=== PATIENT | female | born 1970 | race Caucasian/White ===

== ENCOUNTER 2016-12-17 10:55 | Day surgery (SDC) | payer BC, OTHER ==
[~2016-12-17 10:55] MED LIST: Lactated Ringers 1,000 ML IV SCH; Sodium Chloride 0.9% 10 ML Syringe FLUSH PRN; Sodium Chloride 0.9% 2.5 ML Syringe FLUSH PRN
[2016-12-17] MEDS ORDERED: Propofol 200 MG/20 ML SDV ONE (11:37)
[2016-12-17] MEDS ORDERED: Lidocaine 2% 5 ML SDV ONE (11:37)
[2016-12-17] MEDS ORDERED: fentaNYL 100 MCG/2 ML SDV ONE (11:38)
[2016-12-17] MEDS ORDERED: Midazolam 1 MG/ML 2 ML SDV ONE ×2 (11:38→12:14)
--- NOTE | 2016-12-17 11:42 | PCM.PREANE ---
Preanesthetic Assessment - Anesthesia/Transfusion/Family Hx Anesthesia History: Prior Anesthesia Without Reaction Family History of Anesthesia Reaction: No Transfusion History: No Prior Transfusion(s) Intubation History: Unknown - Review of Systems General: No Symptoms Pulmonary: No Symptoms Cardiovascular: No Symptoms Gastrointestinal: Abdominal pain, Difficulty swallowing Neurological: No Symptoms Other: Reports: None - Physical Assessment O2 Sat by Pulse Oximetry: 98 Respiratory Rate: 16 Vital Signs: Last Vital Signs Temp 36.7 C 12/17/16 11:32 Pulse 70 12/17/16 11:32 Resp 16 12/17/16 11:32 BP 149/76 H 12/17/16 11:32 Pulse Ox 98 12/17/16 11:32 Height: 1.63 m Weight: 67.585 kg ASA Class: 2 Mental Status: Alert & Oriented x3 Airway Class: Mallampati = 2 Dentition: Reports: Normal Dentition Thyro-Mental Finger Breadths: 3 Mouth Opening Finger Breadths: 2 ROM/Head Extension: Full Lungs: Clear to auscultation, Normal respiratory effort Cardiovascular: Regular Rate, Regular Rhythm - Lab Values: Laboratory Last Values Urine HCG, Qual NEGATIVE (NEGATIVE) 12/17/16 10:58 - Allergies Allergies/Adverse Reactions: Allergies Allergy/AdvReac Type Severity Reaction Status Date / Time morphine Allergy Hives Verified 12/16/16 11:20 - Blood Blood Available: No - Anesthesia Plan Pre-Op Medication Ordered: None - Acknowledgements Anesthesia Type Planned: MAC Pt an Appropriate Candidate for the Planned Anesthesia: Yes Alternatives and Risks of Anesthesia Discussed w Pt/Guardian: Yes Pt/Guardian Understands and Agrees with Anesthesia Plan: Yes PreAnesthesia Questionnaire HEENT History: Reports: Glaucoma Other HEENT History: wears glasses Cardiovascular History: Reports: High cholesterol, Hypertension Respiratory History: Reports: None Gastrointestinal History: Reports: Pancreatitis (h/o pancreatitis 8 years ago treated with ERCP and stent placement), Other (see below) (epigastric pain and disphagia) Genitourinary History: Reports: None MANAGING ATTORNEY History: Reports: None Musculoskeletal History: Reports: None Neurological History: Reports: Other (see below) Other Neuro History: hx of motion sickness Psychiatric History: Reports: Anxiety, Depression Endocrine/Metabolic History: Reports: Other (see below) Other Endocrine/Metabolic History: hypoglycemia Hematologic History: Reports: None Immunologic History: Reports: None Oncologic (Cancer) History: Reports: None Dermatologic History: Reports: None - Past Surgical History Head Surgeries/Procedures: Reports: None HEENT Surgical History: Reports: None Cardiovascular Surgical History: Reports: None Respiratory Surgical History: Reports: None GI Surgical History: Reports: Appendectomy, Cholecystectomy, Colonoscopy (x2), EGD (x2), ERCP Female Surgical History: Reports: Hysterectomy Endocrine Surgical History: Reports: None Neurological Surgical History: Reports: None Musculoskeletal Surgical History: Reports: None Oncologic Surgical History: Reports: None Dermatological Surgical History: Reports: None - SUBSTANCE USE Smoking Status *Q: Never Smoker Recreational Drug Use History: No - HOME MEDS Home Medications: Home Meds Eszopiclone [Lunesta] 3 mg PO BEDTIME PRN 12/16/16 [History] Lisinopril 20 mg PO DAILY 12/16/16 [History] Montelukast Sodium [Singulair] 10 mg PO DAILY 12/16/16 [History] Spironolactone [Aldactone] 25 mg PO DAILY 12/16/16 [History] Venlafaxine [Effexor] 75 mg PO DAILY 12/16/16 [History] atorvaSTATin [Lipitor] 10 mg PO BEDTIME 12/16/16 [History] - CURRENT (IN HOUSE) MEDS Current Meds: Current Medications Lactated Ringer's (Ringers, Lactated) 1,000 mls @ 125 mls/hr IV ASDIRECTED [facility] Last Admin: 12/17/16 11:34 Dose: 125 mls/hr Sodium Chloride (Saline Flush) 10 ml FLUSH ASDIRECTED PRN PRN Reason: Keep Vein Open Sodium Chloride (Saline Flush) 2.5 ml FLUSH ASDIRECTED PRN PRN Reason: Keep Vein Open
--- NOTE | 2016-12-17 12:46 | PCM.OPNOTE ---
- General Post-Op/Procedure Note Date of Surgery/Procedure: 12/17/16 Operative Procedure(s): EGD with biopsy Findings: Hyperplastic polyps in gastric body otherwise normal Pre Op Diagnosis: dysphagia Post-Op Diagnosis: gastric polyps Anesthesia Technique: MAC Primary Surgeon: Brooke Neely Condition: Good
[2016-12-17] MEDS ORDERED: Ondansetron 4 MG/2 ML SDV IVPUSH ONE (12:50)
[2016-12-17] MEDS ORDERED: Ondansetron 4 MG Tab.DIS PO PRN (12:51)
[2016-12-17] MEDS ORDERED: Ondansetron 4 MG/2 ML SDV ONE (12:54)
--- NOTE | 2016-12-17 12:54 | PCM.POSTAN ---
POST ANESTHESIA ASSESSMENT - MENTAL STATUS Mental Status: alert, oriented - RESPIRATORY Respiratory Status: respiratory rate WNL, airway patent, O2 saturation stable - CARDIOVASCULAR CV Status: pulse rate WNL, blood pressure stable - GASTROINTESTINAL GI Status: no symptoms - POST OP HYDRATION Hydration Status: adequate & stable - OBSERVATIONS Free Text/Narrative:: no anesthesia problems
[2016-12-17] MEDS ORDERED: Prochlorperazine 10 MG/2 ML SDV IVPUSH ONE (13:30)
[2016-12-17 14:26] VITALS: BP 129/70
--- NOTE | 2016-12-17 18:38 | OR ---
SURGEON: RALEIGH VYAS MD DATE OF PROCEDURE: 12/17/2016 PREOPERATIVE DIAGNOSIS: Dysphagia, epigastric pain. POSTOPERATIVE DIAGNOSIS: Hyperplastic polyps of the stomach. PROCEDURE PERFORMED: Esophagogastroduodenoscopy with biopsy. INSTRUMENT USED: Olympus endoscope. ANESTHESIA: MAC. EXTENT OF EXAM: To the second portion of duodenum. PREPARATION: Good. LIMITATIONS: None. INDICATIONS: The patient is a 45-year-old female, who presents with dysphagia to liquids and solids as well as epigastric pain. The patient has had EGDs in the past, which were normal. These symptoms are new and just developed within the last several months. A decision was made to perform a diagnostic EGD. We discussed the procedure as well as expected perioperative course. We discussed the risks, including bleeding, infection, damage to surrounding structures, including perforation. The patient verbalized understanding and wished to proceed. PROCEDURE IN DETAIL: The patient was brought into the endoscopy suite and placed in a beach chair position. A time-out was completed verifying the patient's name, age, date of , allergies, and procedure to be performed. A bite block was placed in the patient's mouth and monitored anesthesia care was induced. Continuous oxygen was provided via nasal cannula throughout the procedure. After adequate sedation was achieved, the Olympus endoscope was placed over the patient's tongue down into her throat and advanced under direct visualization to the level of 2nd portion of the duodenum. A photograph was taken here and the area appeared normal. The scope was then slowly pulled back while examining the remainder of the intestinal mucosa. This all appeared normal. The scope was then brought into the stomach and a photograph taken of the pylorus as well as with the scope retroflexed. These areas both appeared normal. The remainder of the gastric mucosa was inspected. The patient had diffuse hyperplastic polyps throughout the body of the stomach. One of these was removed using a cold biopsy forceps and sent to pathology. Biopsies were taken of the gastric antrum, body, and fundus and sent for H. pylori testing. The scope was then brought into the esophagus and a photograph taken of the distal GE junction. This appeared normal. The remainder of the esophageal mucosa appeared normal. The scope was removed from the patient and the procedure terminated. The patient was taken to the PACU in stable condition. ENDOSCOPIC DIAGNOSIS: Gastric polyps. RECOMMENDATION: Follow up in clinic in 2 weeks. We will start the patient on pantoprazole. DANIEL / HIWOT /[id number]
== END 2016-12-17 14:30 | disposition home or self-care (01) ==
LOC: MW.SDS 10:55
PROVIDERS: ATTEND Surgery
DX: K31.7 Polyp of stomach and duodenum (principal); K29.50 Unspecified chronic gastritis without bleeding; Z88.5 Allergy status to narcotic agent; I10 Essential (primary) hypertension; E78.5 Hyperlipidemia, unspecified; F32.9 Major depressive disorder, single episode, unspecified; F41.9 Anxiety disorder, unspecified; Z90.49 Acquired absence of other specified parts of digestive tract; Z90.710 Acquired absence of both cervix and uterus; Z79.899 Other long term (current) drug therapy
CPT/HCPCS: 43239; 81025; J0780; J2250; J2405; J3010; J7120; 00740; 88305; 88312; J2704